=== PATIENT | female | born 1960 | race Caucasian/White ===

== ENCOUNTER 2022-10-07 08:02 | Inpatient (IN) | payer OTHER ==
[~2022-10-07] VITALS: Ht 154.9 cm; Wt 92.5 kg
[2022-10-07 11:24] LABS: BASOPHILS % 0.5 % (0.0-2.0); EOSINOPHILS % 0.5 % (0.0-5.0); HEMATOCRIT. 48.5 % (36.0-48.0); HEMOGLOBIN. 16.3 g/dL (12.0-16.0); LYMPHOCYTES % 30.3 % (20.0-50.0); MEAN CORPUSCULAR HEMOGLOBIN 29.4 pg (28.0-32.0); MEAN CORPUSCULAR VOLUME 87.4 fL (81.0-99.0); MEAN PLATELET VOLUME 9.1 fl (7.4-10.4); MONOCYTES % 7.7 % (2.0-8.0); PLATELET 196 x1000/uL (130-400); RED BLOOD CELL COUNT 5.55 mill/uL (4.2-5.4); RED CELL DISTRIBUTION WIDTH 14.3 % (11.6-14.6)
[2022-10-07 11:31] LABS: CHLORIDE 105 mEq/L (98-107)
[2022-10-07 23:30] VITALS: BP 154/51
[2022-10-08] VITALS: BP 154/51
[2022-10-08] MEDS ORDERED: METF-414 MT (00:07)
[2022-10-08] MEDS ORDERED: EZET10TA13 PO (00:07)
[2022-10-08] MEDS ORDERED: CELE50CA MT (00:07)
[2022-10-08] MEDS ORDERED: OMEG-119 MT (00:07)
[2022-10-08] MEDS ORDERED: LISI2.5T47 PO (00:07)
[2022-10-08] MEDS ORDERED: CLONIDINE 0.1MG TABLET PO PRN (01:45)
[2022-10-08] MEDS ORDERED: ACETAMINOPHEN 325MG TABLET PO PRN (01:45)
[2022-10-08 04:00] VITALS: BP 116/52
[2022-10-08] MEDS ORDERED: ONDANSETRON HCL 4MG/2ML INJ IV PRN (07:15)
[2022-10-08] MEDS ORDERED: IPRATROPIUM/ALBUTEROL 0.5-3(2.5)MG/3ML NEB HHN PRN (07:15)
[2022-10-08] MEDS ORDERED: ALBUTEROL (0.083%) 2.5MG/3ML NEB HHN PRN (07:15)
[2022-10-08] MEDS ORDERED: DOCUSATE SODIUM 100MG CAPSULE PO PRN (07:15)
[2022-10-08] MEDS ORDERED: LORAZEPAM 0.5MG TABLET PO PRN (07:15)
[2022-10-08] MEDS ORDERED: HYDROCODONE/ACETAMINOPHEN 5/325MG TABLET PO PRN (07:15)
[2022-10-08] MEDS ORDERED: IPRATROPIUM BROMIDE (0.02%) 0.5MG/2.5ML NEB HHN PRN (07:15)
[2022-10-08] MEDS ORDERED: DEXTROSE 50% WATER 50ML SYRINGE IV PRN (07:15)
[2022-10-08] MEDS: BLOOD SUGAR DIAGNOSTIC STRIP TEST SCH ×3 (07:22→21:00)
[2022-10-08] MEDS: INSULIN LISPRO 100 UNITS/ML SUBCUT SCH ×3 (07:22→21:00)
[2022-10-08 07:43] LABS: BASOPHILS % 0.2 % (0.0-2.0); EOSINOPHILS % 1.3 % (0.0-5.0); HEMATOCRIT. 44.1 % (36.0-48.0); LYMPHOCYTES % 35.9 % (20.0-50.0); MEAN CORPUSCULAR HEMOGLOBIN 29.6 pg (28.0-32.0); MEAN PLATELET VOLUME 9.6 fl (7.4-10.4); MONOCYTES % 10.1 % (2.0-8.0); NEUTROPHILS % 52.5 % (40.0-76.0); PLATELET 172 x1000/uL (130-400); RED BLOOD CELL COUNT 5.07 mill/uL (4.2-5.4); RED CELL DISTRIBUTION WIDTH 14.4 % (11.6-14.6)
[2022-10-08 08:00] VITALS: BP 128/79
[2022-10-08] MEDS: EZETIMIBE 10MG TABLET PO SCH (08:20)
[2022-10-08] MEDS: LISINOPRIL 2.5MG TABLET PO SCH (08:21)
[2022-10-08 08:34] LABS: CHLORIDE 104 mEq/L (98-107)
[2022-10-08] MEDS ORDERED: METFORMIN HCL 500MG TABLET PO SCH (09:00)
[2022-10-08] MEDS ORDERED: ASPIRIN 81MG EC TABLET PO SCH (09:30)
[2022-10-08] MEDS ORDERED: REGADENOSON 0.4 MG/5 ML IV NR (10:00)
[2022-10-08 12:00] VITALS: BP 133/60
[2022-10-08] MEDS: ENOXAPARIN 30MG/0.3ML SYR SUBCUT SCH ×2 (12:00→23:00)
[2022-10-08 16:00] VITALS: BP 129/74
[2022-10-08 18:04] LABS: *AMPHETAMINES SCREEN URINE NEGATIVE (NEGATIVE); *BARBITURATES SCREEN URINE NEGATIVE (NEGATIVE); *BENZODIAZEPINES SCREEN URINE NEGATIVE (NEGATIVE); *COCAINE SCREEN URINE NEGATIVE (NEGATIVE); CANNABINOID URINE SCREEN NEGATIVE (NEGATIVE); METHADONE URINE SCREEN NEGATIVE (NEGATIVE); OPIATES URINE SCREEN NEGATIVE (NEGATIVE); PHENCYCLIDINE URINE SCREEN NEGATIVE (NEGATIVE)
[2022-10-08 20:00] VITALS: BP 110/41
[2022-10-09] VITALS: BP 129/50
[2022-10-09 04:00] VITALS: BP 105/35
[2022-10-09 06:39] LABS: BASOPHILS % 0.2 % (0.0-2.0); EOSINOPHILS % 1.4 % (0.0-5.0); HEMATOCRIT. 43.8 % (36.0-48.0); HEMOGLOBIN. 14.7 g/dL (12.0-16.0); LYMPHOCYTES % 37.1 % (20.0-50.0); MEAN CORPUSCULAR HEMOGLOBIN 29.3 pg (28.0-32.0); MEAN CORPUSCULAR VOLUME 87.1 fL (81.0-99.0); MEAN PLATELET VOLUME 9.7 fl (7.4-10.4); MONOCYTES % 9.6 % (2.0-8.0); NEUTROPHILS % 51.7 % (40.0-76.0); PLATELET 180 x1000/uL (130-400); RED BLOOD CELL COUNT 5.03 mill/uL (4.2-5.4)
[2022-10-09 07:37] LABS: CHLORIDE 107 mEq/L (98-107)
[2022-10-09] MEDS: BLOOD SUGAR DIAGNOSTIC STRIP TEST SCH ×2 (07:40→12:40)
[2022-10-09 07:55] LABS: HDL CHOLESTEROL 55 mg/dL (40-59); LDL CHOLESTEROL 112 mg/dL (5-100)
[2022-10-09 08:00] VITALS: BP 118/56
[2022-10-09] MEDS: INSULIN LISPRO 100 UNITS/ML SUBCUT SCH ×2 (08:03→12:51)
[2022-10-09] MEDS: EZETIMIBE 10MG TABLET PO SCH (09:00)
[2022-10-09] MEDS: LISINOPRIL 2.5MG TABLET PO SCH (09:00)
[2022-10-09] MEDS: ENOXAPARIN 30MG/0.3ML SYR SUBCUT SCH (09:00)
[2022-10-09] MEDS ORDERED: REGADENOSON 0.4 MG/5 ML IV ONE (10:22)
[2022-10-09 12:00] VITALS: BP 120/60
[2022-10-09] MEDS ORDERED: ATOR10TA PO (12:47)
[2022-10-09 13:35] VITALS: BP 120/60
[2022-10-09] MEDS ORDERED: ATORVASTATIN CALCIUM 10MG TABLET PO SCH (21:00)
== END 2022-10-09 14:40 | disposition home or self-care (01) | DRG 203 ==
LOC: ER 08:02 → MICUSO 18:43 → EDBEDREQTM 18:55 → EDBEDREQ 18:55 → 7WST 23:38
PROVIDERS: ADMIT Internal Medicine; ATTEND Internal Medicine
DX: M94.0 Chondrocostal junction syndrome [Tietze] (principal); E11.9 Type 2 diabetes mellitus without complications; I10 Essential (primary) hypertension; I44.0 Atrioventricular block, first degree; E66.9 Obesity, unspecified; E78.5 Hyperlipidemia, unspecified; Z20.822 Contact with and (suspected) exposure to COVID-19; R74.01 Elevation of levels of liver transaminase levels; Z86.16 Personal history of COVID-19; Z88.0 Allergy status to penicillin; Z88.5 Allergy status to narcotic agent; Z88.6 Allergy status to analgesic agent; Z88.8 Allergy status to other drugs, medicaments and biological substances; Z68.38 Body mass index [BMI] 38.0-38.9, adult
CPT/HCPCS: 36415; 71045; 78452; 80048; 80053; 80061; 80305; 82962; 83036; 83880; 84484; 85025; 85379; 87426; 87804; 93005; 93017; 93306; 99285; A9500; C9803; J1650; J2785

== ENCOUNTER 2024-02-08 22:45 | Emergency (ER) | payer MEDICAID, OTHER ==
[~2024-02-08] VITALS: Ht 160 cm; Wt 83.0 kg
[~2024-02-08 22:45] MED LIST: ATOR10TA PO; CELE50CA MT; EZET10TA81 PO; LISI2.5T47 PO; METF-414 MT; OMEG-119 MT
[2024-02-08 22:59] VITALS: TEMP 98.3; O2SAT 99
[2024-02-08] MEDS ORDERED: MINE50OI TP (23:49)
[2024-02-09 00:12] VITALS: BP 140/63; PULSE 60; RESP 16
== END 2024-02-09 00:13 | disposition home or self-care (01) ==
LOC: ER 22:45
DX: R04.0 Epistaxis (principal); E11.9 Type 2 diabetes mellitus without complications; I10 Essential (primary) hypertension; Z95.0 Presence of cardiac pacemaker; Z79.899 Other long term (current) drug therapy; Z88.0 Allergy status to penicillin
CPT/HCPCS: 99283